=== PATIENT | male | born 1945 | race Native Hawaiian/Other Pacific Islander ===

== ENCOUNTER 2018-01-20 11:24 | Inpatient (IN) | payer MEDICARE, OTHER ==
[~2018-01-20] VITALS: Ht 373.4 cm; Wt 86.0 kg
[2018-01-20 11:52] LABS: BASOPHILS % (AUTO) 0.4 % (0-1); EOSINOPHILS # (AUTO) 0.1 X10'3 (0-0.9); EOSINOPHILS % (AUTO) 0.5 % (0-6); HEMATOCRIT 50.6 % (42.0-52.0); HEMOGLOBIN 16.8 g/dl (14.0-17.9); LYMPHOCYTES # (AUTO) 1.3 X10'3 (1.1-4.8); LYMPHOCYTES % (AUTO) 10.4 % (21-51); MEAN CORPUSCULAR HEMOGLOBIN 29.3 PG (27.0-31.0); MEAN CORPUSCULAR HGB CONC 33.2 % (33.0-36.5); MEAN CORPUSCULAR VOLUME 88.4 FL (78-98); MEAN PLATELET VOLUME 7.6 FL (7.4-10.4); MONOCYTES # (AUTO) 0.3 X10'3 (0-0.9); MONOCYTES % (AUTO) 2.7 % (2-12); NEUTROPHILS # (AUTO) 10.9 X10'3 (1.8-7.7); PLATELET COUNT 277 X10'3 (140-440); RED BLOOD COUNT 5.72 X10'6 (4.70-6.10); RED CELL DISTRIBUTION WIDTH 13.6 % (11.5-14.5); WHITE BLOOD COUNT 12.7 X10'3 (4.5-11.0)
[2018-01-20 12:04] LABS: INR 1.1 INR; PARTIAL THROMBOPLASTIN TIME 25 SECONDS (22-32)
[2018-01-20] MEDS ORDERED: heparin 25,000 UNIT/250ml bag 250 ML IV SCH (12:04)
[2018-01-20] MEDS ORDERED: heparin 10,000 units/1 ML INJ IV ONE (12:05)
[2018-01-20] MEDS ORDERED: heparin 10,000 units/1 ML INJ IV PRN (12:05)
[2018-01-20] MEDS ORDERED: aspirin 325mg tablet PO ONE (12:05)
[2018-01-20 12:06] LABS: ALANINE AMINOTRANSFERASE 33 U/L (12-78); ALBUMIN 4.1 G/DL (3.4-5.0); ALBUMIN/GLOBULIN RATIO 0.9 (1.1-1.5); ALKALINE PHOSPHATASE 59 IU/L (46-116); ANION GAP 12 (8-16); ASPARTATE AMINO TRANSFERASE 23 U/L (10-37); BILIRUBIN,TOTAL 0.7 MG/DL (0.1-1.0); BLOOD UREA NITROGEN 20 MG/DL (7-18); BUN/CREATININE RATIO 15.6 (5.4-32.0); CALCIUM 9.5 MG/DL (8.5-10.1); CHLORIDE 103 MMOL/L (99-107); CREATININE 1.28 MG/DL (0.60-1.10); GLUCOSE 154 MG/DL (70-104); POTASSIUM 4.1 MMOL/L (3.5-5.1); SODIUM 139 MMOL/L (135-145); TOTAL CARBON DIOXIDE 24.2 MMOL/L (24-32); TOTAL PROTEIN 8.6 G/DL (6.4-8.2); eGFR 56 ML/MIN
[2018-01-20 12:10] LABS: TROPONIN I < 0.04 NG/ML (0.0-0.05)
[2018-01-20] MEDS ORDERED: apixaban 2.5mg tablet PO SCH (12:21)
[2018-01-20] MEDS ORDERED: ondansetron/PF 4mg/2ml inj IV ONE ×2 (12:25→13:55)
[2018-01-20] MEDS: normal saline 1000ml 1,000 ML IV SCH (12:48)
[2018-01-20] MEDS ORDERED: magnesium 4gm in 100ml NS 100 ML IV PRN (12:50)
[2018-01-20] MEDS ORDERED: HYDROcodone/acetaminophen 5mg/325mg tablet PO PRN (12:50)
[2018-01-20] MEDS ORDERED: atorvastatin 10mg tablet PO SCH (12:50)
[2018-01-20] MEDS ORDERED: potassium Cl 20 mEq SR tablet PO PRN ×2 (12:50)
[2018-01-20] MEDS ORDERED: mag hydrox/Alum hydrox/simeth 30ml oral suspension PO PRN (12:50)
[2018-01-20] MEDS ORDERED: diphenhydrAMINE 25mg capsule PO PRN (12:50)
[2018-01-20] MEDS ORDERED: morphine 2 MG/ML inj. syringe IV PRN ×2 (12:50)
[2018-01-20] MEDS ORDERED: magnesium 1gm/100ml D5W IVPB 100 ML IV PRN (12:50)
[2018-01-20] MEDS ORDERED: acetaminophen 325mg tablet PO PRN ×2 (12:50)
[2018-01-20] MEDS ORDERED: HYDROcodone/acetaminophen 10/325mg tab PO PRN (12:50)
[2018-01-20] MEDS ORDERED: potassium Cl 40MEQ/NS 500ml 500 ML IV PRN ×2 (12:50)
[2018-01-20] MEDS ORDERED: magnesium hydroxide 30ml (MOM) UD suspension PO PRN (12:50)
[2018-01-20] MEDS ORDERED: magnesium Cl slow-release 64mg tablet PO PRN (12:50)
[2018-01-20 13:25] LABS: CHOL/HDL RATIO 6.9 (0.00-4.99); CHOLESTEROL 247 MG/DL (0-200); HDL CHOLESTEROL 36 MG/DL (35-60); LDL CHOLESTEROL 180 MG/DL (50-100); TRIGLYCERIDES 172 MG/DL (20-135)
[2018-01-20 13:28] LABS: HEMOGLOBIN A1C 6.5 % (4.5-6.2)
[2018-01-20] MEDS: K and/or MAG REPLACEMENT MC SCH (13:32)
[2018-01-20] MEDS ORDERED: LORazepam 2 mg/ml vial IV ONE (13:55)
[2018-01-20] MEDS ORDERED: NO HOME MEDS (14:34)
[2018-01-20] MEDS: carVEDilol 12.5mg tablet PO SCH ×2 (15:00→20:05)
[2018-01-20] MEDS: atorvastatin 20mg tablet PO SCH (15:05)
[2018-01-20 17:07] LABS: CLARITY,URINE SLIGHTLY CLOUDY (Clear); GLUCOSE, URINE NEGATIVE (Neg); KETONES,URINE 15 mg/dl (Neg); LEUKOCYTE ESTERASE ,URINE NEGATIVE (Neg); NITRITES, URINE NEGATIVE (Neg); OCCULT BLOOD,URINE SMALL (Neg); PROTEIN,URINE >=300 mg/dl (Neg); UROBILINOGEN,URINE 0.2 E.U/dL (0.2-1.0)
[2018-01-20 17:09] LABS: COLOR,URINE AMBER (Yellow); UA COLLECTION TYPE CLN CATCH MIDSTREAM
[2018-01-20 17:35] LABS: BACTERIA,URINE FEW /HPF (Neg); RBC,URINE NONE SEEN /HPF (0-2); SQUAMOUS EPITHELIAL CELL,UR NONE SEEN /LPF (FEW); WBC,URINE 0-4 /HPF (0-4)
[2018-01-20 17:56] VITALS: BP 151/88
[2018-01-20] MEDS: ondansetron/PF 4mg/2ml inj IV PRN (19:23)
[2018-01-20] MEDS: apixaban 5mg tablet PO SCH (20:06)
[2018-01-20] MEDS ORDERED: temazepam 15mg capsule PO PRN (21:00)
[2018-01-20 22:00] VITALS: BP 130/81
[2018-01-21] VITALS (7 sets, daily range): BP systolic 113–142; BP diastolic 50–87
[2018-01-21] MEDS: normal saline 1000ml 1,000 ML IV SCH ×3 (01:25→19:33)
[2018-01-21 07:47] LABS: BASOPHILS % (AUTO) 0.5 % (0-1); EOSINOPHILS # (AUTO) 0.1 X10'3 (0-0.9); EOSINOPHILS % (AUTO) 1.2 % (0-6); HEMATOCRIT 42.6 % (42.0-52.0); HEMOGLOBIN 14.2 g/dl (14.0-17.9); LYMPHOCYTES # (AUTO) 1.7 X10'3 (1.1-4.8); LYMPHOCYTES % (AUTO) 19.5 % (21-51); MEAN CORPUSCULAR HEMOGLOBIN 29.6 PG (27.0-31.0); MEAN CORPUSCULAR HGB CONC 33.4 % (33.0-36.5); MEAN CORPUSCULAR VOLUME 88.6 FL (78-98); MEAN PLATELET VOLUME 7.9 FL (7.4-10.4); MONOCYTES # (AUTO) 0.9 X10'3 (0-0.9); NEUTROPHILS # (AUTO) 5.9 X10'3 (1.8-7.7); NEUTROPHILS % (AUTO) 68.8 % (42-75); PLATELET COUNT 228 X10'3 (140-440); RED CELL DISTRIBUTION WIDTH 13.7 % (11.5-14.5); WHITE BLOOD COUNT 8.6 X10'3 (4.5-11.0)
[2018-01-21] MEDS: aspirin 81mg tablet.DR PO SCH (07:50)
[2018-01-21] MEDS: atorvastatin 20mg tablet PO SCH (07:50)
[2018-01-21] MEDS: carVEDilol 12.5mg tablet PO SCH ×2 (07:50→19:33)
[2018-01-21] MEDS: apixaban 5mg tablet PO SCH ×2 (07:50→19:33)
[2018-01-21] MEDS: K and/or MAG REPLACEMENT MC SCH (08:00)
[2018-01-21 08:05] LABS: ALANINE AMINOTRANSFERASE 25 U/L (12-78); ALBUMIN 3.1 G/DL (3.4-5.0); ALBUMIN/GLOBULIN RATIO 0.9 (1.1-1.5); ALKALINE PHOSPHATASE 45 IU/L (46-116); ASPARTATE AMINO TRANSFERASE 19 U/L (10-37); BILIRUBIN,TOTAL 0.5 MG/DL (0.1-1.0); BLOOD UREA NITROGEN 23 MG/DL (7-18); CALCIUM 8.6 MG/DL (8.5-10.1); CHOLESTEROL 181 MG/DL (0-200); CREATININE 1.21 MG/DL (0.60-1.10); GLUCOSE 124 MG/DL (70-104); HDL CHOLESTEROL 30 MG/DL (35-60); LDL CHOLESTEROL 133 MG/DL (50-100); TOTAL CARBON DIOXIDE 26.1 MMOL/L (24-32); TOTAL PROTEIN 6.7 G/DL (6.4-8.2); TRIGLYCERIDES 119 MG/DL (20-135); eGFR 59 ML/MIN
[2018-01-21 08:19] LABS: ANION GAP 10 (8-16); CHLORIDE 107 MMOL/L (99-107); POTASSIUM 3.9 MMOL/L (3.5-5.1); SODIUM 143 MMOL/L (135-145)
[2018-01-22] VITALS: BP 126/74
[2018-01-22 04:54] VITALS: BP 148/94
[2018-01-22 06:22] LABS: BASOPHILS % (AUTO) 0.6 % (0-1); EOSINOPHILS # (AUTO) 0.1 X10'3 (0-0.9); EOSINOPHILS % (AUTO) 1.8 % (0-6); HEMATOCRIT 40.2 % (42.0-52.0); HEMOGLOBIN 13.4 g/dl (14.0-17.9); MEAN CORPUSCULAR HEMOGLOBIN 29.6 PG (27.0-31.0); MEAN CORPUSCULAR HGB CONC 33.3 % (33.0-36.5); MEAN CORPUSCULAR VOLUME 88.9 FL (78-98); MEAN PLATELET VOLUME 8.1 FL (7.4-10.4); MONOCYTES # (AUTO) 0.6 X10'3 (0-0.9); MONOCYTES % (AUTO) 8.2 % (2-12); NEUTROPHILS % (AUTO) 64.4 % (42-75); PLATELET COUNT 215 X10'3 (140-440); RED BLOOD COUNT 4.52 X10'6 (4.70-6.10); WHITE BLOOD COUNT 7.8 X10'3 (4.5-11.0)
[2018-01-22 07:22] LABS: ALANINE AMINOTRANSFERASE 27 U/L (12-78); ALBUMIN 2.9 G/DL (3.4-5.0); ALBUMIN/GLOBULIN RATIO 0.8 (1.1-1.5); ALKALINE PHOSPHATASE 48 IU/L (46-116); ANION GAP 9 (8-16); ASPARTATE AMINO TRANSFERASE 21 U/L (10-37); BILIRUBIN,TOTAL 0.5 MG/DL (0.1-1.0); BLOOD UREA NITROGEN 21 MG/DL (7-18); BUN/CREATININE RATIO 17.2 (5.4-32.0); CALCIUM 7.7 MG/DL (8.5-10.1); CHLORIDE 106 MMOL/L (99-107); CREATININE 1.22 MG/DL (0.60-1.10); GLUCOSE 109 MG/DL (70-104); MAGNESIUM 1.7 MG/DL (1.5-2.4); PHOSPHORUS 2.8 MG/DL (2.3-4.5); POTASSIUM 3.8 MMOL/L (3.5-5.1); SODIUM 140 MMOL/L (135-145); TOTAL CARBON DIOXIDE 25.1 MMOL/L (24-32); TOTAL PROTEIN 6.4 G/DL (6.4-8.2); eGFR 59 ML/MIN
[2018-01-22] MEDS: K and/or MAG REPLACEMENT MC SCH (08:00)
[2018-01-22 08:54] VITALS: BP 129/73
[2018-01-22] MEDS: normal saline 1000ml 1,000 ML IV SCH ×2 (09:08→14:48)
[2018-01-22] MEDS: apixaban 5mg tablet PO SCH (09:20)
[2018-01-22] MEDS: carVEDilol 12.5mg tablet PO SCH (09:20)
[2018-01-22] MEDS: atorvastatin 20mg tablet PO SCH (09:20)
[2018-01-22] MEDS: aspirin 81mg tablet.DR PO SCH (09:20)
[2018-01-22] MEDS: ondansetron/PF 4mg/2ml inj IV PRN (09:21)
[2018-01-22] MEDS ORDERED: ATOR20TA66 PO (13:21)
[2018-01-22] MEDS ORDERED: CARV-50 PO (13:21)
[2018-01-22] MEDS ORDERED: APIX5TAB3 PO (13:21)
[2018-01-22] MEDS ORDERED: ASPI-1071 PO (13:21)
[2018-01-22] MEDS ORDERED: METF-950 PO (16:54)
[2018-01-22] MEDS ORDERED: PANT40TA4 PO (16:54)
== END 2018-01-22 16:09 | disposition home or self-care (01) | DRG 66 ==
LOC: ER 11:25 → ED HOLD 12:48 → ORTHO 4S 17:35
PROVIDERS: ADMIT Family Medicine; ATTEND Family Medicine
DX: I63.40 Cerebral infarction due to embolism of unspecified cerebral artery (principal); I48.91 Unspecified atrial fibrillation; E78.5 Hyperlipidemia, unspecified; Z60.2 Problems related to living alone; H53.8 Other visual disturbances; H53.462 Homonymous bilateral field defects, left side; I49.3 Ventricular premature depolarization; Z79.01 Long term (current) use of anticoagulants; Z79.82 Long term (current) use of aspirin; Z79.899 Other long term (current) drug therapy; Z80.1 Family history of malignant neoplasm of trachea, bronchus and lung; Z80.3 Family history of malignant neoplasm of breast
CPT/HCPCS: 36415; 70450; 70544; 70551; 71045; 80053; 80061; 81001; 82948; 83036; 83735; 84100; 84443; 84484; 85025; 85610; 85730; 87070; 92616; 93005; 93306; 93880; 96374; 97116; 97161; 99285; G0378; J2060; J2405; J7030

== ENCOUNTER 2018-05-06 14:42 | Inpatient (IN) | payer MEDICARE, OTHER | END 2018-05-07 18:05 | disposition home or self-care (01) | LOC: ER 14:42 → ED HOLD 18:02 → ORTHO 4S 20:20 | DX: R55 Syncope and collapse (principal); I48.91 Unspecified atrial fibrillation; G93.89 Other specified disorders of brain; Z86.73 Personal history of transient ischemic attack (TIA), and cerebral infarction without residual deficits; N18.9 Chronic kidney disease, unspecified ==

== ENCOUNTER 2018-07-23 09:53 | Outpatient (CLI) | payer MEDICARE, OTHER ==
[2018-07-23] VITALS (21 sets, daily range): BP systolic 138–186; BP diastolic 76–111
[~2018-07-23 09:53] MED LIST: APIX5TAB3 PO; ASPI-1071 PO; CARV-50 PO; LORA10TA65 PO
== END 2018-07-23 23:59 | disposition home or self-care (01) ==
LOC: CARD DIAG 09:53
PROVIDERS: ATTEND Internal Medicine Cardiovascular Disease
DX: R42 Dizziness and giddiness (principal); I10 Essential (primary) hypertension
CPT/HCPCS: 93660

== ENCOUNTER 2018-07-30 10:05 | Day surgery (SDC) | payer MEDICARE, OTHER ==
[2018-07-30] VITALS (11 sets, daily range): BP systolic 147–178; BP diastolic 66–94
[~2018-07-30] VITALS: Ht 190.5 cm; Wt 104.9 kg
[2018-07-30] MEDS ORDERED: MIDAZolam 5mg/ml 2ml vial IV ONE (10:40)
[2018-07-30] MEDS ORDERED: morphine 10mg/ml inj. IV ONE (10:40)
[2018-07-30] MEDS ORDERED: amiodarone in dextrose, iso-osm 150mg/100ml bag IV ONE (10:40)
[2018-07-30] MEDS ORDERED: LORazepam 0.5 MG tablet PO ONE (10:40)
[2018-07-30] MEDS ORDERED: atropine 0.1mg/ml 10ml syringe IV ONE (10:40)
[2018-07-30] MEDS ORDERED: diphenhydrAMINE 25mg capsule PO ONE (10:40)
[2018-07-30] MEDS ORDERED: ATOR20TA PO (11:00)
[2018-07-30] MEDS ORDERED: LORA10TA7 PO (11:04)
[2018-07-30] MEDS ORDERED: APIX5TAB3 PO (11:04)
[2018-07-30] MEDS ORDERED: CARV-50 PO (11:04)
[2018-07-30] MEDS ORDERED: ASPI81TA30 PO (11:04)
[2018-07-30 12:26] LABS: BASOPHILS # (AUTO) 0.1 X10'3 (0-0.2); BASOPHILS % (AUTO) 1.1 % (0-1); EOSINOPHILS # (AUTO) 0.2 X10'3 (0-0.9); EOSINOPHILS % (AUTO) 2.7 % (0-6); HEMATOCRIT 43.3 % (42.0-52.0); HEMOGLOBIN 14.8 g/dl (14.0-17.9); LYMPHOCYTES # (AUTO) 1.4 X10'3 (1.1-4.8); LYMPHOCYTES % (AUTO) 19.4 % (21-51); MEAN CORPUSCULAR HEMOGLOBIN 31.2 PG (27.0-31.0); MEAN CORPUSCULAR HGB CONC 34.2 g/dL (33.0-36.5); MEAN CORPUSCULAR VOLUME 91.2 FL (78-98); MEAN PLATELET VOLUME 7.9 FL (7.4-10.4); MONOCYTES # (AUTO) 0.5 X10'3 (0-0.9); MONOCYTES % (AUTO) 7.5 % (2-12); NEUTROPHILS # (AUTO) 4.8 X10'3 (1.8-7.7); NEUTROPHILS % (AUTO) 69.3 % (42-75); PLATELET COUNT 173 X10'3 (140-440); RED BLOOD COUNT 4.75 X10'6 (4.70-6.10); RED CELL DISTRIBUTION WIDTH 13.6 % (11.5-14.5)
[2018-07-30] MEDS ORDERED: AMIO200T27 PO (12:27)
[2018-07-30 12:41] LABS: ALBUMIN 3.7 G/DL (3.4-5.0); ANION GAP 7 (8-16); BLOOD UREA NITROGEN 19 MG/DL (7-18); BUN/CREATININE RATIO 17.9 (5.4-32.0); CALCIUM 8.8 MG/DL (8.5-10.1); CHLORIDE 106 MMOL/L (99-107); CREATININE 1.06 MG/DL (0.60-1.10); GLUCOSE 107 MG/DL (70-104); POTASSIUM 4.2 MMOL/L (3.5-5.1); SODIUM 140 MMOL/L (135-145); TOTAL CARBON DIOXIDE 26.8 MMOL/L (24-32); eGFR 69 ML/MIN
== END 2018-07-30 15:45 | disposition home or self-care (01) ==
LOC: SSTAY O 10:05
PROVIDERS: ATTEND Internal Medicine Cardiovascular Disease
DX: I48.0 Paroxysmal atrial fibrillation (principal); E78.5 Hyperlipidemia, unspecified; I10 Essential (primary) hypertension; G47.30 Sleep apnea, unspecified; I34.0 Nonrheumatic mitral (valve) insufficiency; Z79.82 Long term (current) use of aspirin; Z79.899 Other long term (current) drug therapy; Z80.8 Family history of malignant neoplasm of other organs or systems; Z86.73 Personal history of transient ischemic attack (TIA), and cerebral infarction without residual deficits
CPT/HCPCS: 36415; 80048; 85025; 85610; 92960; 93005; J0282; J0461; J2250; J2270

== ENCOUNTER 2018-08-03 09:04 | Inpatient (IN) | payer MEDICARE, OTHER ==
[~2018-08-03] VITALS: Ht 190.5 cm; Wt 104.5 kg
[~2018-08-03 09:04] MED LIST changes: +AMIO200T27 PO; -ASPI-1071 PO; +ASPI81TA30 PO; +ATOR20TA PO; -LORA10TA65 PO; +LORA10TA7 PO
[2018-08-03] MEDS ORDERED: ondansetron/PF 4mg/2ml inj IV ONE (09:30)
[2018-08-03 09:48] LABS: BASOPHILS # (AUTO) 0.1 X10'3 (0-0.2); BASOPHILS % (AUTO) 0.8 % (0-1); EOSINOPHILS # (AUTO) 0.3 X10'3 (0-0.9); EOSINOPHILS % (AUTO) 2.7 % (0-6); HEMATOCRIT 42.1 % (42.0-52.0); LYMPHOCYTES # (AUTO) 1.2 X10'3 (1.1-4.8); LYMPHOCYTES % (AUTO) 12.6 % (21-51); MEAN CORPUSCULAR HEMOGLOBIN 30.6 PG (27.0-31.0); MEAN CORPUSCULAR HGB CONC 33.4 g/dL (33.0-36.5); MEAN CORPUSCULAR VOLUME 91.7 FL (78-98); MONOCYTES # (AUTO) 0.6 X10'3 (0-0.9); NEUTROPHILS # (AUTO) 7.7 X10'3 (1.8-7.7); NEUTROPHILS % (AUTO) 77.9 % (42-75); PLATELET COUNT 175 X10'3 (140-440); RED BLOOD COUNT 4.59 X10'6 (4.70-6.10); RED CELL DISTRIBUTION WIDTH 13.4 % (11.5-14.5); WHITE BLOOD COUNT 9.9 X10'3 (4.5-11.0)
[2018-08-03 10:01] LABS: ALANINE AMINOTRANSFERASE 27 U/L (12-78); ALBUMIN 3.6 G/DL (3.4-5.0); ALBUMIN/GLOBULIN RATIO 0.9 (1.1-1.5); ALKALINE PHOSPHATASE 60 IU/L (46-116); ANION GAP 9 (8-16); ASPARTATE AMINO TRANSFERASE 15 U/L (10-37); BILIRUBIN,TOTAL 0.8 MG/DL (0.1-1.0); BLOOD UREA NITROGEN 20 MG/DL (7-18); BUN/CREATININE RATIO 16.5 (5.4-32.0); CALCIUM 8.6 MG/DL (8.5-10.1); CHLORIDE 104 MMOL/L (99-107); CREATININE 1.21 MG/DL (0.60-1.10); GLUCOSE 163 MG/DL (70-104); POTASSIUM 4.3 MMOL/L (3.5-5.1); SODIUM 138 MMOL/L (135-145); TOTAL CARBON DIOXIDE 24.9 MMOL/L (24-32); TOTAL PROTEIN 7.4 G/DL (6.4-8.2); eGFR 59 ML/MIN
[2018-08-03 10:07] LABS: MAGNESIUM 1.8 MG/DL (1.5-2.4)
[2018-08-03] MEDS ORDERED: proCHLORperazine 10 MG/2 ml inj IV ONE (10:10)
[2018-08-03] MEDS ORDERED: HYDROcodone/acetaminophen 10/325mg tab PO PRN (11:00)
[2018-08-03] MEDS ORDERED: potassium CL 10mEq/100ml bag 100 ML IV PRN (11:00)
[2018-08-03] MEDS ORDERED: acetaminophen 325mg tablet PO PRN ×2 (11:00)
[2018-08-03] MEDS ORDERED: diphenhydrAMINE 25mg capsule PO PRN (11:00)
[2018-08-03] MEDS ORDERED: ondansetron/PF 4mg/2ml inj IV PRN (11:00)
[2018-08-03] MEDS ORDERED: magnesium Cl slow-release 64mg tablet PO PRN (11:00)
[2018-08-03] MEDS ORDERED: magnesium 2GM in 50ml NS 50 ML IV PRN (11:00)
[2018-08-03] MEDS ORDERED: HYDROcodone/acetaminophen 5mg/325mg tablet PO PRN (11:00)
[2018-08-03] MEDS ORDERED: mag hydrox/Alum hydrox/simeth 30ml oral suspension PO PRN (11:00)
[2018-08-03] MEDS ORDERED: potassium Cl 40MEQ/NS 500ml 500 ML IV PRN (11:00)
[2018-08-03] MEDS ORDERED: magnesium hydroxide 30ml (MOM) UD suspension PO PRN (11:00)
[2018-08-03] MEDS ORDERED: potassium Cl 20 mEq SR tablet PO PRN ×2 (11:00)
[2018-08-03] MEDS ORDERED: magnesium 4gm in 100ml NS 100 ML IV PRN (11:00)
[2018-08-03] MEDS ORDERED: bisacodyl 10mg suppository rectal RC PRN (11:00)
[2018-08-03] MEDS ORDERED: morphine 2 MG/ML inj. syringe IV PRN (11:00)
[2018-08-03] MEDS: K and/or MAG REPLACEMENT MC SCH (11:00)
[2018-08-03 11:21] LABS: HEMOGLOBIN A1C 6.1 % (4.5-6.2)
--- NOTE | 2018-08-03 11:21 | NUR ---
I SPOKE WITH DR FARLEY IN E.D. PATIENT WILL BE ADMITTED TO HOSPITALIST SERVICE. WILL FOLLOW ON FLOOR.
[2018-08-03] MEDS: normal saline 1000ml 1,000 ML IV SCH ×2 (11:31→13:39)
[2018-08-03 11:35] LABS: CLARITY,URINE CLEAR (Clear); COLOR,URINE STRAW (Yellow); GLUCOSE, URINE NEGATIVE (Neg); KETONES,URINE NEGATIVE (Neg); LEUKOCYTE ESTERASE ,URINE NEGATIVE (Neg); NITRITES, URINE NEGATIVE (Neg); OCCULT BLOOD,URINE NEGATIVE (Neg); PH,URINE 6.5 (4.8-8.0); PROTEIN,URINE NEGATIVE (Neg); UROBILINOGEN,URINE 0.2 E.U/dL (0.2-1.0)
[2018-08-03 11:36] LABS: UA COLLECTION TYPE VOIDED
--- NOTE | 2018-08-03 12:01 | NUR ---
REPORT TO TEENA RODRIGUES ON PCU. TAKEN TO INPATIENT ROOM VIA GURNEY ON PORTABLE MONITOR, IN STABLE CONDITION.
--- NOTE | 2018-08-03 12:07 | NUR ---
Pt arrived on unit 1205, received report at 1204 from Nevaeh DICKINSON. Patient was transferred to bed and is currently having an echo performed. Will initiate telemetry, obtain vital signs and orient the patient to the room as soon as echo is done.
[2018-08-03 13:00] VITALS: BP 158/76
--- NOTE | 2018-08-03 14:30 | NUR ---
PAGER ID: [phone] MESSAGE: [id number], Ng. Patient is nauseated at this time. MRI would like to postpone until 1630 or 1700 so avoid vomit in the MRI tube. Please advise, Ailyn [phone]
[2018-08-03] MEDS ORDERED: meclizine 12.5mg tablet PO ONE (14:40)
[2018-08-03] MEDS ORDERED: proCHLORperazine 10 MG/2 ml inj IV PRN (14:40)
[2018-08-03] MEDS ORDERED: metoclopramide 5 mg/ml inj IV PRN (14:40)
[2018-08-03] MEDS ORDERED: meclizine 12.5mg tablet PO PRN (14:40)
[2018-08-03 15:00] VITALS: BP 156/74
--- NOTE | 2018-08-03 17:15 | NUR ---
PAGER ID: [phone] MESSAGE: [id number], Ng. Can we postpone the MRI until tomorrow morning? Patient still slightly nauseated. Ailyn [phone]
--- NOTE | 2018-08-03 17:57 | NUR ---
Patient is having nausea and does not feel comfortable with going down for an MRI at this time. Paged Dr. Abad to ask if we can postpone the MRI for the morning after speaking with the central office technician and conferring that we do not want the patient to vomit in the MRI tube. Patient has received 2 different medications for nausea and is still feeling sick at this time. Patient would also like to have something to help with his claustrophobia before having the MRI done as well. Patient has also not been able to stand up for orthostatic vitals due to Nausea.
--- NOTE | 2018-08-03 18:17 | NUR ---
Problems reprioritized. Patient report given, questions answered & plan of care reviewed with Redd DICKINSON. Patient stable at transfer of care.
--- NOTE | 2018-08-03 18:37 | NUR ---
Patient in room PCU 3014. I have received report from Ailyn and had the opportunity to ask questions and assume patient care.
[2018-08-03 19:00] VITALS: BP 155/68
[2018-08-03] MEDS ORDERED: carVEDilol 3.125mg tablet PO SCH (20:00)
[2018-08-03] MEDS: apixaban 5mg tablet PO SCH (20:42)
[2018-08-03 23:00] VITALS: BP 159/66
[2018-08-04] VITALS (8 sets, daily range): BP systolic 123–173; BP diastolic 60–83
[2018-08-04] MEDS: normal saline 1000ml 1,000 ML IV SCH (04:02)
[2018-08-04 05:17] LABS: BASOPHILS # (AUTO) 0.1 X10'3 (0-0.2); BASOPHILS % (AUTO) 0.7 % (0-1); EOSINOPHILS # (AUTO) 0.1 X10'3 (0-0.9); EOSINOPHILS % (AUTO) 1.2 % (0-6); HEMATOCRIT 40.2 % (42.0-52.0); HEMOGLOBIN 13.7 g/dl (14.0-17.9); LYMPHOCYTES # (AUTO) 1.4 X10'3 (1.1-4.8); LYMPHOCYTES % (AUTO) 18.6 % (21-51); MEAN CORPUSCULAR HEMOGLOBIN 30.9 PG (27.0-31.0); MEAN CORPUSCULAR VOLUME 90.9 FL (78-98); MEAN PLATELET VOLUME 8.2 FL (7.4-10.4); MONOCYTES # (AUTO) 0.6 X10'3 (0-0.9); MONOCYTES % (AUTO) 8.3 % (2-12); NEUTROPHILS # (AUTO) 5.5 X10'3 (1.8-7.7); NEUTROPHILS % (AUTO) 71.2 % (42-75); PLATELET COUNT 162 X10'3 (140-440); RED BLOOD COUNT 4.43 X10'6 (4.70-6.10); RED CELL DISTRIBUTION WIDTH 13.3 % (11.5-14.5); WHITE BLOOD COUNT 7.7 X10'3 (4.5-11.0)
[2018-08-04 05:32] LABS: ALANINE AMINOTRANSFERASE 26 U/L (12-78); ALBUMIN 3.1 G/DL (3.4-5.0); ALBUMIN/GLOBULIN RATIO 0.9 (1.1-1.5); ALKALINE PHOSPHATASE 53 IU/L (46-116); ANION GAP 9 (8-16); ASPARTATE AMINO TRANSFERASE 15 U/L (10-37); BILIRUBIN,TOTAL 0.8 MG/DL (0.1-1.0); BLOOD UREA NITROGEN 13 MG/DL (7-18); BUN/CREATININE RATIO 11.5 (5.4-32.0); CALCIUM 8.4 MG/DL (8.5-10.1); CHLORIDE 107 MMOL/L (99-107); CHOL/HDL RATIO 4.6 (0.00-4.99); CHOLESTEROL 132 MG/DL (0-200); CREATININE 1.13 MG/DL (0.60-1.10); GLUCOSE 89 MG/DL (70-104); HDL CHOLESTEROL 29 MG/DL (35-60); LDL CHOLESTEROL 87 MG/DL (50-100); MAGNESIUM 1.8 MG/DL (1.5-2.4); PHOSPHORUS 3.1 MG/DL (2.3-4.5); POTASSIUM 3.7 MMOL/L (3.5-5.1); SODIUM 141 MMOL/L (135-145); TOTAL CARBON DIOXIDE 25.1 MMOL/L (24-32); TOTAL PROTEIN 6.5 G/DL (6.4-8.2); TRIGLYCERIDES 107 MG/DL (20-135); eGFR 64 ML/MIN
--- NOTE | 2018-08-04 06:26 | NUR ---
Problems reprioritized. Patient report given, questions answered & plan of care reviewed with Mary.
--- NOTE | 2018-08-04 06:34 | NUR ---
Patient in room PCU 3014. I have received report from Keri DICKINSON and had the opportunity to ask questions and assume patient care.
[2018-08-04] MEDS: loratadine 10mg tablet PO SCH (07:50)
[2018-08-04] MEDS: aspirin 81mg tab.chew PO SCH (07:50)
[2018-08-04] MEDS: apixaban 5mg tablet PO SCH ×2 (07:50→20:44)
[2018-08-04] MEDS: amiodarone 200mg tablet PO SCH (07:50)
[2018-08-04] MEDS ORDERED: atorvastatin 20mg tablet PO SCH (08:00)
[2018-08-04] MEDS: K and/or MAG REPLACEMENT MC SCH (08:00)
[2018-08-04] MEDS ORDERED: LORazepam 2 mg/ml vial IV ONE (09:00)
--- NOTE | 2018-08-04 10:48 | NUR ---
paged stroke team [id number] Pt Ng Stroke alert MRI new infarct Left cerebellum Thank you Ext [phone]
--- NOTE | 2018-08-04 11:05 | NUR ---
Per Dr. Abad, follow stroke protocol but do not order CT.
[2018-08-04 12:03] LABS: BASOPHILS % (AUTO) 0.7 % (0-1); EOSINOPHILS # (AUTO) 0.1 X10'3 (0-0.9); EOSINOPHILS % (AUTO) 0.7 % (0-6); HEMATOCRIT 41.4 % (42.0-52.0); HEMOGLOBIN 13.8 g/dl (14.0-17.9); LYMPHOCYTES # (AUTO) 1.2 X10'3 (1.1-4.8); LYMPHOCYTES % (AUTO) 15.9 % (21-51); MEAN CORPUSCULAR HEMOGLOBIN 30.3 PG (27.0-31.0); MEAN CORPUSCULAR HGB CONC 33.2 g/dL (33.0-36.5); MEAN CORPUSCULAR VOLUME 91.2 FL (78-98); MEAN PLATELET VOLUME 8.1 FL (7.4-10.4); MONOCYTES # (AUTO) 0.5 X10'3 (0-0.9); MONOCYTES % (AUTO) 7.3 % (2-12); NEUTROPHILS # (AUTO) 5.5 X10'3 (1.8-7.7); NEUTROPHILS % (AUTO) 75.4 % (42-75); PLATELET COUNT 173 X10'3 (140-440); RED BLOOD COUNT 4.55 X10'6 (4.70-6.10); RED CELL DISTRIBUTION WIDTH 13.7 % (11.5-14.5); WHITE BLOOD COUNT 7.3 X10'3 (4.5-11.0)
[2018-08-04 12:18] LABS: ALANINE AMINOTRANSFERASE 22 U/L (12-78); ALBUMIN 3.2 G/DL (3.4-5.0); ALBUMIN/GLOBULIN RATIO 0.9 (1.1-1.5); ALKALINE PHOSPHATASE 56 IU/L (46-116); ANION GAP 9 (8-16); ASPARTATE AMINO TRANSFERASE 15 U/L (10-37); BILIRUBIN,TOTAL 0.6 MG/DL (0.1-1.0); BLOOD UREA NITROGEN 16 MG/DL (7-18); BUN/CREATININE RATIO 13.9 (5.4-32.0); CALCIUM 8.5 MG/DL (8.5-10.1); CHLORIDE 106 MMOL/L (99-107); CREATININE 1.15 MG/DL (0.60-1.10); GLUCOSE 126 MG/DL (70-104); POTASSIUM 3.9 MMOL/L (3.5-5.1); SODIUM 140 MMOL/L (135-145); TOTAL CARBON DIOXIDE 24.6 MMOL/L (24-32); TOTAL PROTEIN 6.8 G/DL (6.4-8.2); eGFR 63 ML/MIN
[2018-08-04 12:20] LABS: PARTIAL THROMBOPLASTIN TIME 30 SECONDS (22-32)
--- NOTE | 2018-08-04 13:55 | NUR ---
I came and saw patient regarding new cva on mri report, the nihss and stroke education was completed. Pt has now seen the patient and will be working with him regarding safety concerns with his balance. I will pass on to the nurse that patient will probably need to have his Lipitor increased since the LDL is still elevated after being on 20mg dose. Also I am trying to see if is vocational director for in patient to make any recommendations for medication changes. If he is not available then I will have nurse ask Dr. Abad if he wants SOC to evaluate.
--- NOTE | 2018-08-04 14:09 | NUR ---
Dr. Garcia is targeting acquisition officer per his office this week so I will inform the pt's nurse to have Dr. Abad call him today if he wants the patient to be seen by Dr. Garcia.
--- NOTE | 2018-08-04 14:28 | NUR ---
PAGER ID: [phone] MESSAGE: [id number] pt Ng per stroke nurse SOC is not done when MD is call or contact centre operator. If you want Dr. Hicks to consult it must be MD to MD request. Please and thank you. - Amy [phone]
--- NOTE | 2018-08-04 14:31 | NUR ---
PAGER ID: [phone] MESSAGE: [phone] pt Ng per stroke nurse SOC is not done when MD is overnight houseperson. If you want Dr. Hicks to consult it must be MD to MD request. Please and thank you. - Amy [phone]
--- NOTE | 2018-08-04 14:51 | NUR ---
I forgot to document that the left visual field deficit is from an old stroke and not new.
--- NOTE | 2018-08-04 18:15 | NUR ---
Problems reprioritized. Patient report given, questions answered & plan of care reviewed with Keri DICKINSON.
--- NOTE | 2018-08-04 18:49 | NUR ---
Patient in room PCU 3014. I have received report from Mary and had the opportunity to ask questions and assume patient care.
--- NOTE | 2018-08-04 18:54 | NUR ---
Patient in room PCU 3014. I have received report from Mary DICKINSON and had the opportunity to ask questions and assume patient care.
[2018-08-04] MEDS: atorvastatin 20mg tablet PO SCH (19:01)
--- NOTE | 2018-08-04 19:33 | NUR ---
patient converted to afib about 15 minutes ago from sinus. patient is asymptomatic. BP 155/74 HR [address] Suárez. He's aware and made no changes to current plan.
[2018-08-05] VITALS (7 sets, daily range): BP systolic 122–158; BP diastolic 71–99
[2018-08-05 05:16] LABS: BASOPHILS # (AUTO) 0.1 X10'3 (0-0.2); EOSINOPHILS # (AUTO) 0.2 X10'3 (0-0.9); EOSINOPHILS % (AUTO) 2.2 % (0-6); HEMATOCRIT 45.3 % (42.0-52.0); HEMOGLOBIN 15.4 g/dl (14.0-17.9); LYMPHOCYTES # (AUTO) 1.8 X10'3 (1.1-4.8); LYMPHOCYTES % (AUTO) 24.8 % (21-51); MEAN CORPUSCULAR HGB CONC 34.1 g/dL (33.0-36.5); MEAN CORPUSCULAR VOLUME 90.9 FL (78-98); MONOCYTES # (AUTO) 0.7 X10'3 (0-0.9); MONOCYTES % (AUTO) 9.1 % (2-12); NEUTROPHILS # (AUTO) 4.5 X10'3 (1.8-7.7); NEUTROPHILS % (AUTO) 62.9 % (42-75); PLATELET COUNT 185 X10'3 (140-440); RED BLOOD COUNT 4.98 X10'6 (4.70-6.10); RED CELL DISTRIBUTION WIDTH 13.6 % (11.5-14.5); WHITE BLOOD COUNT 7.2 X10'3 (4.5-11.0)
[2018-08-05 05:43] LABS: ALANINE AMINOTRANSFERASE 22 U/L (12-78); ALBUMIN 3.5 G/DL (3.4-5.0); ALBUMIN/GLOBULIN RATIO 0.9 (1.1-1.5); ALKALINE PHOSPHATASE 62 IU/L (46-116); ANION GAP 10 (8-16); ASPARTATE AMINO TRANSFERASE 15 U/L (10-37); BILIRUBIN,TOTAL 0.8 MG/DL (0.1-1.0); BLOOD UREA NITROGEN 16 MG/DL (7-18); BUN/CREATININE RATIO 12.5 (5.4-32.0); CHLORIDE 105 MMOL/L (99-107); CREATININE 1.28 MG/DL (0.60-1.10); GLUCOSE 108 MG/DL (70-104); PHOSPHORUS 3.3 MG/DL (2.3-4.5); POTASSIUM 3.6 MMOL/L (3.5-5.1); SODIUM 141 MMOL/L (135-145); TOTAL CARBON DIOXIDE 25.8 MMOL/L (24-32); TOTAL PROTEIN 7.3 G/DL (6.4-8.2); eGFR 55 ML/MIN
--- NOTE | 2018-08-05 06:00 | NUR ---
Received report from TEENA Rainey. Pt is A&O x4; denies nausea, vomiting, chest pain, SOB, and pain. LBM: 08/05. Respiratory: room air. Pt is in fall precautions due to admitting dx of dizziness. Fall precautions in place. Low bed, call light and personal items within reach, non-skid socks, and commode by bed. However, pt is not using commode. Call before using the bathroom. Will continue to monitor.
--- NOTE | 2018-08-05 06:17 | NUR ---
Problems reprioritized. Patient report given, questions answered & plan of care reviewed with Ailyn.
--- NOTE | 2018-08-05 06:18 | NUR ---
Problems reprioritized. Patient report given, questions answered & plan of care reviewed with Ailyn DICKINSON.
--- NOTE | 2018-08-05 06:19 | NUR ---
Discussed patient's change to afib and some flutter waves with larissa.
--- NOTE | 2018-08-05 06:19 | NUR ---
I have reviewed and agree with all medications administered and interventions performed by EXPANSION JOINT FINISHER froilan Martinez
[2018-08-05] MEDS: K and/or MAG REPLACEMENT MC SCH (06:43)
[2018-08-05] MEDS: atorvastatin 20mg tablet PO SCH (07:29)
[2018-08-05] MEDS: aspirin 81mg tab.chew PO SCH (07:31)
[2018-08-05] MEDS: loratadine 10mg tablet PO SCH (07:32)
[2018-08-05] MEDS: amiodarone 200mg tablet PO SCH (07:33)
[2018-08-05] MEDS: apixaban 5mg tablet PO SCH ×2 (07:33→19:42)
--- NOTE | 2018-08-05 12:05 | NUR ---
Paged respiratory regarding Cpap for sleep order.
--- NOTE | 2018-08-05 18:15 | NUR ---
Problems reprioritized. Patient report given, questions answered & plan of care reviewed with Redd DICKINSON. Patient stable at transfer of care.
--- NOTE | 2018-08-05 18:24 | NUR ---
Patient in room PCU 3014. I have received report from Ailyn and had the opportunity to ask questions and assume patient care.
[2018-08-06 02:00] VITALS: BP 158/83
--- NOTE | 2018-08-06 06:00 | NUR ---
Patient in room PCU 3014. I have received report from TEENA Saavedra and had the opportunity to ask questions and assume patient care. Pt resting, denies complaint.
[2018-08-06 06:01] LABS: BASOPHILS # (AUTO) 0.1 X10'3 (0-0.2); EOSINOPHILS # (AUTO) 0.2 X10'3 (0-0.9); EOSINOPHILS % (AUTO) 2.7 % (0-6); HEMATOCRIT 47.9 % (42.0-52.0); LYMPHOCYTES # (AUTO) 1.7 X10'3 (1.1-4.8); LYMPHOCYTES % (AUTO) 22.9 % (21-51); MEAN CORPUSCULAR HEMOGLOBIN 30.3 PG (27.0-31.0); MEAN CORPUSCULAR HGB CONC 33.4 g/dL (33.0-36.5); MEAN CORPUSCULAR VOLUME 90.9 FL (78-98); MEAN PLATELET VOLUME 7.9 FL (7.4-10.4); MONOCYTES # (AUTO) 0.7 X10'3 (0-0.9); MONOCYTES % (AUTO) 9.4 % (2-12); NEUTROPHILS # (AUTO) 4.7 X10'3 (1.8-7.7); PLATELET COUNT 194 X10'3 (140-440); RED BLOOD COUNT 5.26 X10'6 (4.70-6.10); RED CELL DISTRIBUTION WIDTH 13.1 % (11.5-14.5); WHITE BLOOD COUNT 7.3 X10'3 (4.5-11.0)
--- NOTE | 2018-08-06 06:13 | NUR ---
Problems reprioritized. Patient report given, questions answered & plan of care reviewed with Gordon.
[2018-08-06 06:16] LABS: ALANINE AMINOTRANSFERASE 26 U/L (12-78); ALBUMIN 3.3 G/DL (3.4-5.0); ALBUMIN/GLOBULIN RATIO 0.9 (1.1-1.5); ALKALINE PHOSPHATASE 59 IU/L (46-116); ANION GAP 8 (8-16); ASPARTATE AMINO TRANSFERASE 20 U/L (10-37); BILIRUBIN,TOTAL 0.7 MG/DL (0.1-1.0); BLOOD UREA NITROGEN 22 MG/DL (7-18); BUN/CREATININE RATIO 17.5 (5.4-32.0); CALCIUM 8.6 MG/DL (8.5-10.1); CHLORIDE 106 MMOL/L (99-107); CREATININE 1.26 MG/DL (0.60-1.10); GLUCOSE 114 MG/DL (70-104); PHOSPHORUS 3.8 MG/DL (2.3-4.5); POTASSIUM 3.6 MMOL/L (3.5-5.1); SODIUM 140 MMOL/L (135-145); TOTAL CARBON DIOXIDE 26.5 MMOL/L (24-32); TOTAL PROTEIN 7.1 G/DL (6.4-8.2); eGFR 56 ML/MIN
[2018-08-06 06:44] VITALS: BP 139/62
[2018-08-06] MEDS: atorvastatin 20mg tablet PO SCH (07:25)
[2018-08-06] MEDS: amiodarone 200mg tablet PO SCH (07:25)
[2018-08-06] MEDS: loratadine 10mg tablet PO SCH (07:25)
[2018-08-06] MEDS: apixaban 5mg tablet PO SCH (07:25)
[2018-08-06] MEDS: aspirin 81mg tab.chew PO SCH (07:26)
[2018-08-06] MEDS: K and/or MAG REPLACEMENT MC SCH (08:00)
[2018-08-06 11:00] VITALS: BP_SYST 126; BP_SYST 131; BP_SYST 141; BP_SYST 149; BP_DIAS 58; BP_DIAS 75; BP_DIAS 81; BP_DIAS 91
--- NOTE | 2018-08-06 12:30 | NUR ---
Called [facility] to give report as patient is to be transported at 1330. Report given to Yi with [facility].
--- NOTE | 2018-08-06 13:30 | NUR ---
Patient discharge in stable condition, VSS normal, A&Ox4, removed IV with catheter intact, tele removed, personal belongings and CPAP with patient. Pt off unit with wheelchair Addendum: 08/06/18 at 1339 by Jaspal Hart RN Pt off unit via wheelchair to [facility] via [employer]. Care relinquish.
--- NOTE | 2018-08-06 13:30 | NUR ---
Orientee documentation: I have reviewed and agree with interventions, assessments performed and documented by TEENA Shay.
== END 2018-08-06 13:26 | DRG 65 ==
LOC: ER 09:06 → PCU 3S 12:08 → CMPBEDREQ 19:46
PROVIDERS: ADMIT Family Medicine; ATTEND Family Medicine
DX: I63.9 Cerebral infarction, unspecified (principal); N17.9 Acute kidney failure, unspecified; H81.10 Benign paroxysmal vertigo, unspecified ear; I48.91 Unspecified atrial fibrillation; G47.33 Obstructive sleep apnea (adult) (pediatric); I12.9 Hypertensive chronic kidney disease with stage 1 through stage 4 chronic kidney disease, or unspecified chronic kidney disease; N18.2 Chronic kidney disease, stage 2 (mild); Z60.2 Problems related to living alone; E78.5 Hyperlipidemia, unspecified; G93.89 Other specified disorders of brain; R27.0 Ataxia, unspecified; I25.10 Atherosclerotic heart disease of native coronary artery without angina pectoris; Z79.01 Long term (current) use of anticoagulants; Z79.82 Long term (current) use of aspirin; Z79.899 Other long term (current) drug therapy; Z80.1 Family history of malignant neoplasm of trachea, bronchus and lung; Z80.3 Family history of malignant neoplasm of breast; Z86.73 Personal history of transient ischemic attack (TIA), and cerebral infarction without residual deficits
CPT/HCPCS: 36415; 70450; 70544; 70547; 70551; 71045; 72141; 80053; 80061; 81003; 83036; 83735; 83880; 84100; 84439; 84443; 84484; 85025; 85730; 87070; 93005; 93306; 93880; 96374; 96375; 97110; 97116; 97162; 97530; 99285; G0378; J0780; J2060; J2405; J7030; J8597

== ENCOUNTER 2018-10-28 06:50 | Day surgery (SDC) | payer MEDICARE, OTHER ==
[2018-10-27 15:31] LABS: BASOPHILS # (AUTO) 0.1 X10'3 (0-0.2); BASOPHILS % (AUTO) 0.9 % (0-1); EOSINOPHILS # (AUTO) 0.1 X10'3 (0-0.9); EOSINOPHILS % (AUTO) 1.9 % (0-6); HEMATOCRIT 43.6 % (42.0-52.0); HEMOGLOBIN 14.7 g/dl (14.0-17.9); LYMPHOCYTES # (AUTO) 1.5 X10'3 (1.1-4.8); LYMPHOCYTES % (AUTO) 25.2 % (21-51); MEAN CORPUSCULAR HEMOGLOBIN 31.4 PG (27.0-31.0); MEAN CORPUSCULAR HGB CONC 33.8 g/dL (33.0-36.5); MEAN PLATELET VOLUME 7.9 FL (7.4-10.4); MONOCYTES # (AUTO) 0.5 X10'3 (0-0.9); MONOCYTES % (AUTO) 7.8 % (2-12); NEUTROPHILS # (AUTO) 3.7 X10'3 (1.8-7.7); NEUTROPHILS % (AUTO) 64.2 % (42-75); PLATELET COUNT 187 X10'3 (140-440); RED BLOOD COUNT 4.69 X10'6 (4.70-6.10); RED CELL DISTRIBUTION WIDTH 14.9 % (11.5-14.5); WHITE BLOOD COUNT 5.8 X10'3 (4.5-11.0)
[2018-10-27 15:35] LABS: ALBUMIN 3.8 G/DL (3.4-5.0); ANION GAP 9 (8-16); BLOOD UREA NITROGEN 23 MG/DL (7-18); BUN/CREATININE RATIO 16.2 (5.4-32.0); CALCIUM 9.5 MG/DL (8.5-10.1); CHLORIDE 108 MMOL/L (99-107); CREATININE 1.42 MG/DL (0.60-1.10); GLUCOSE 94 MG/DL (70-104); POTASSIUM 4.3 MMOL/L (3.5-5.1); SODIUM 143 MMOL/L (135-145); TOTAL CARBON DIOXIDE 25.8 MMOL/L (24-32); eGFR 49 ML/MIN
[2018-10-27 16:03] LABS: PARTIAL THROMBOPLASTIN TIME 30 SECONDS (22-32)
[2018-10-28] VITALS (14 sets, daily range): BP systolic 130–152; BP diastolic 62–94
[~2018-10-28] VITALS: Ht 190.5 cm; Wt 102.9 kg
[2018-10-28] MEDS ORDERED: acetylcysteine 200 MG/ml 4ml vial PO SCH ×2 (07:04→10:19)
[2018-10-28] MEDS ORDERED: normal saline 1,000 ML IV SCH (07:05)
[2018-10-28] MEDS ORDERED: diphenhydrAMINE 25mg capsule PO PRN (07:05)
[2018-10-28] MEDS ORDERED: RIVA20TA PO (07:16)
[2018-10-28] MEDS ORDERED: LIDOcaine/PRILOcaine 5gm cream TP ONE (07:40)
[2018-10-28] MEDS ORDERED: LIDOcaine 1% (10mg/ml)w/preservative injection 20ml MDV ONE (07:43)
[2018-10-28] MEDS ORDERED: fentaNYL/PF 50MCG/1 ML 2ML syringe ONE (07:43)
[2018-10-28] MEDS ORDERED: heparin 1,000unit/ml 10ml vial 10 ML ONE (07:43)
[2018-10-28] MEDS ORDERED: verapamil 2.5 mg/ml inj IV ONE (07:43)
[2018-10-28] MEDS ORDERED: midazolam 2 mg/2 ml injection ONE (07:43)
[2018-10-28] MEDS ORDERED: nitroGLYCERIN-Tridil 50MG/D5W 250 ML IV ONE (07:44)
[2018-10-28] MEDS ORDERED: heparin 1,000 UNITS/NS 500ml 500 ML ONE ×3 (07:44→08:49)
[2018-10-28] MEDS ORDERED: iohexol 350 MG/ML 50ML vial IV ONE (07:44)
[2018-10-28] MEDS ORDERED: iohexol 350MG/ML 100ml bottle IV ONE ×3 (07:44→09:08)
[2018-10-28] MEDS ORDERED: LORazepam 0.5 MG tablet PO PRN (07:45)
[2018-10-28] MEDS ORDERED: heparin 25,000 UNIT/250ml bag 250 ML IV ONE (08:49)
[2018-10-28] MEDS ORDERED: clopidogrel 300mg tablet ONE (09:18)
[2018-10-28] MEDS ORDERED: SODIUM CHLORIDE IV ONE (10:20)
[2018-10-28] MEDS ORDERED: SODIUM BICARBONATE IV ONE (10:20)
[2018-10-28] MEDS ORDERED: aspirin 81mg tab.chew PO SCH (10:22)
[2018-10-28] MEDS ORDERED: cyclobenzaprine 10mg tablet PO PRN (10:25)
[2018-10-28] MEDS ORDERED: CLOPIDOGREL BISULFATE 300MG TAB PO ONE (10:25)
[2018-10-28] MEDS ORDERED: acetaminophen 325mg tablet PO PRN (10:25)
[2018-10-28] MEDS ORDERED: proCHLORperazine 10 MG/2 ml inj IV PRN (10:25)
[2018-10-28] MEDS ORDERED: OXAZEpam 15mg capsule PO PRN (10:25)
[2018-10-28] MEDS ORDERED: HYDROcodone/acetaminophen 10/325mg tab PO PRN ×2 (10:25)
[2018-10-28] MEDS ORDERED: magnesium hydroxide 30ml (MOM) UD suspension PO PRN (10:25)
[2018-10-28] MEDS ORDERED: heparin 25,000 UNIT/250ml bag 250 ML IV SCH (10:27)
[2018-10-28] MEDS ORDERED: heparin 10,000 units/1 ML INJ IV ONE (10:30)
[2018-10-28] MEDS ORDERED: heparin 10,000 units/1 ML INJ IV PRN (10:30)
[2018-10-28 11:21] LABS: ISTAT HGB ART 13.3 g/dl (14.0-18.0); ISTAT Hct ART 39 %PCV (42-52); ISTAT O2 SATURATION ARTERIAL 98 % (95-98); ISTAT SOURCE ART
[2018-10-28 11:21] LABS: ISTAT Hct MIX 39 %PCV (42-52); ISTAT O2 SATURATION MIX VENOUS 67 % (60-80); ISTAT SOURCE MIX
[2018-10-28] MEDS ORDERED: sodium bicarbonate inj. 75 ML in dextrose 5% water 500ml 500 ML IV SCH (11:50)
[2018-10-28] MEDS ORDERED: docusate sod 100mg capsule PO SCH (20:00)
[2018-10-28] MEDS ORDERED: carVEDilol 12.5mg tablet PO SCH (20:00)
[2018-10-29] MEDS ORDERED: atorvastatin 20mg tablet PO SCH (08:00)
[2018-10-29] MEDS ORDERED: loratadine 10mg tablet PO SCH (08:00)
[2018-10-29] MEDS ORDERED: amiodarone 200mg tablet PO SCH (08:00)
[2018-10-29] MEDS ORDERED: clopidogrel 75mg tablet PO SCH (08:00)
[2018-10-29] MEDS ORDERED: rivaroxaban 20mg tablet PO SCH (08:00)
== END 2018-10-28 18:17 | disposition home or self-care (01) ==
LOC: SSTAY O 06:50
PROVIDERS: ATTEND Internal Medicine Cardiovascular Disease
DX: I25.10 Atherosclerotic heart disease of native coronary artery without angina pectoris (principal); E78.5 Hyperlipidemia, unspecified; G47.30 Sleep apnea, unspecified; I48.0 Paroxysmal atrial fibrillation; I10 Essential (primary) hypertension; I27.21 Secondary pulmonary arterial hypertension; Z86.73 Personal history of transient ischemic attack (TIA), and cerebral infarction without residual deficits; Z79.82 Long term (current) use of aspirin; Z79.899 Other long term (current) drug therapy
CPT/HCPCS: 36415; 80048; 82803; 85014; 85025; 85347; 85610; 85730; 93005; 93460; 99152; 99153; C1725; C1769; C1874; C1894; C9600; J1644; J2001; J2250; J3010; J7030; J7060; Q0163; Q9967; A4620; A5120; A6258; J3490

== ENCOUNTER 2018-11-04 07:10 | Day surgery (SDC) | payer MEDICARE, OTHER ==
[~2018-11-04] VITALS: Ht 190.5 cm; Wt 102.1 kg
[2018-11-04] VITALS (13 sets, daily range): BP systolic 132–181; BP diastolic 64–90
[~2018-11-04 07:10] MED LIST changes: -APIX5TAB3 PO; +RIVA20TA PO
[2018-11-04] MEDS ORDERED: diphenhydrAMINE 25mg capsule PO PRN (07:40)
[2018-11-04] MEDS ORDERED: sodium bicarbonate (8.4%) inj. 75 ML in dextrose 5% water 500ml 500 ML IV ONE (07:40)
[2018-11-04] MEDS ORDERED: LORazepam 0.5 MG tablet PO PRN (07:40)
[2018-11-04] MEDS ORDERED: sodium bicarbonate inj. 75 ML in dextrose 5% water 500ml 500 ML IV ONE (07:46)
[2018-11-04] MEDS ORDERED: acetylcysteine 200 MG/ml 4ml vial PO SCH (08:00)
[2018-11-04] MEDS ORDERED: CLOP75TA15 PO (08:10)
[2018-11-04 08:29] LABS: BASOPHILS # (AUTO) 0.1 X10'3 (0-0.2); EOSINOPHILS # (AUTO) 0.1 X10'3 (0-0.9); EOSINOPHILS % (AUTO) 2.5 % (0-6); HEMATOCRIT 45.1 % (42.0-52.0); HEMOGLOBIN 15.1 g/dl (14.0-17.9); LYMPHOCYTES % (AUTO) 19.4 % (21-51); MEAN CORPUSCULAR HEMOGLOBIN 31.1 PG (27.0-31.0); MEAN CORPUSCULAR HGB CONC 33.6 g/dL (33.0-36.5); MEAN CORPUSCULAR VOLUME 92.5 FL (78-98); MEAN PLATELET VOLUME 7.2 FL (7.4-10.4); MONOCYTES # (AUTO) 0.5 X10'3 (0-0.9); MONOCYTES % (AUTO) 9.5 % (2-12); NEUTROPHILS # (AUTO) 3.3 X10'3 (1.8-7.7); NEUTROPHILS % (AUTO) 67.6 % (42-75); PLATELET COUNT 178 X10'3 (140-440); RED BLOOD COUNT 4.87 X10'6 (4.70-6.10); RED CELL DISTRIBUTION WIDTH 15.2 % (11.5-14.5); WHITE BLOOD COUNT 4.9 X10'3 (4.5-11.0)
[2018-11-04] MEDS ORDERED: heparin 25,000 UNIT/250ml bag 250 ML IV ONE (08:35)
[2018-11-04] MEDS ORDERED: nitroGLYCERIN-Tridil 50MG/D5W 250 ML IV ONE (08:35)
[2018-11-04] MEDS ORDERED: fentaNYL/PF 50MCG/1 ML 2ML syringe ONE (08:36)
[2018-11-04] MEDS ORDERED: iohexol 350 MG/1 ML 200ml bottle ONE (08:36)
[2018-11-04] MEDS ORDERED: LIDOcaine 1% (10mg/ml)w/preservative injection 20ml MDV ONE (08:36)
[2018-11-04] MEDS ORDERED: heparin 1,000unit/ml 10ml vial 10 ML ONE (08:36)
[2018-11-04] MEDS ORDERED: midazolam 2 mg/2 ml injection ONE (08:36)
[2018-11-04 08:37] LABS: ALBUMIN 3.8 G/DL (3.4-5.0); ANION GAP 8 (8-16); BLOOD UREA NITROGEN 17 MG/DL (7-18); BUN/CREATININE RATIO 15.5 (5.4-32.0); CALCIUM 8.8 MG/DL (8.5-10.1); CHLORIDE 108 MMOL/L (99-107); GLUCOSE 107 MG/DL (70-104); POTASSIUM 4.3 MMOL/L (3.5-5.1); SODIUM 142 MMOL/L (135-145); TOTAL CARBON DIOXIDE 26.4 MMOL/L (24-32); eGFR 66 ML/MIN
[2018-11-04 08:50] LABS: PARTIAL THROMBOPLASTIN TIME 27 SECONDS (22-32)
[2018-11-04] MEDS ORDERED: iohexol 350MG/ML 100ml bottle IV ONE (10:03)
[2018-11-04] MEDS ORDERED: clopidogrel 300mg tablet ONE (10:20)
[2018-11-04] MEDS ORDERED: proCHLORperazine 10 MG/2 ml inj IV PRN (11:15)
[2018-11-04] MEDS ORDERED: acetaminophen 325mg tablet PO PRN (11:15)
[2018-11-04] MEDS ORDERED: cyclobenzaprine 10mg tablet PO PRN (11:15)
[2018-11-04] MEDS ORDERED: HYDROcodone/acetaminophen 10/325mg tab PO PRN ×2 (11:15)
[2018-11-04] MEDS ORDERED: magnesium hydroxide 30ml (MOM) UD suspension PO PRN (11:15)
[2018-11-04] MEDS ORDERED: OXAZEpam 15mg capsule PO PRN (11:15)
[2018-11-04] MEDS ORDERED: aspirin 325mg tablet PO ONE (11:20)
[2018-11-04] MEDS ORDERED: docusate sod 100mg capsule PO SCH (20:00)
[2018-11-05] MEDS ORDERED: aspirin 81mg tab.chew PO SCH (08:00)
[2018-11-05] MEDS ORDERED: clopidogrel 75mg tablet PO SCH (08:00)
== END 2018-11-04 19:25 | disposition home or self-care (01) ==
LOC: SSTAY O 07:10
PROVIDERS: ATTEND Internal Medicine Cardiovascular Disease
DX: I25.10 Atherosclerotic heart disease of native coronary artery without angina pectoris (principal); I48.0 Paroxysmal atrial fibrillation; E78.5 Hyperlipidemia, unspecified; I10 Essential (primary) hypertension; Z86.73 Personal history of transient ischemic attack (TIA), and cerebral infarction without residual deficits; Z79.899 Other long term (current) drug therapy
CPT/HCPCS: 36415; 80048; 85025; 85347; 85610; 85730; 92920; 93005; 99152; 99153; C1725; C1769; C1874; C9600; J1644; J2001; J2250; J3010; Q0163; Q9967; A4620; A6258; C1760; C9601; J3490

== ENCOUNTER 2018-12-30 05:48 | Day surgery (SDC) | payer MEDICARE, OTHER ==
[2018-12-29 12:11] LABS: PARTIAL THROMBOPLASTIN TIME 33 SECONDS (22-32)
[2018-12-29 12:13] LABS: BASOPHILS # (AUTO) 0.1 X10'3 (0-0.2); BASOPHILS % (AUTO) 1.3 % (0-1); EOSINOPHILS # (AUTO) 0.1 X10'3 (0-0.9); EOSINOPHILS % (AUTO) 2.4 % (0-6); HEMATOCRIT 44.9 % (42.0-52.0); HEMOGLOBIN 15.3 g/dl (14.0-17.9); LYMPHOCYTES # (AUTO) 1.1 X10'3 (1.1-4.8); LYMPHOCYTES % (AUTO) 19.9 % (21-51); MEAN CORPUSCULAR HEMOGLOBIN 31.9 PG (27.0-31.0); MEAN CORPUSCULAR VOLUME 93.8 FL (78-98); MEAN PLATELET VOLUME 7.8 FL (7.4-10.4); MONOCYTES # (AUTO) 0.4 X10'3 (0-0.9); MONOCYTES % (AUTO) 6.7 % (2-12); NEUTROPHILS # (AUTO) 3.9 X10'3 (1.8-7.7); NEUTROPHILS % (AUTO) 69.7 % (42-75); PLATELET COUNT 193 X10'3 (140-440); RED BLOOD COUNT 4.79 X10'6 (4.70-6.10); RED CELL DISTRIBUTION WIDTH 13.3 % (11.5-14.5); WHITE BLOOD COUNT 5.6 X10'3 (4.5-11.0)
[2018-12-29 12:15] LABS: ALBUMIN 4.3 G/DL (3.4-5.0); ANION GAP 10 (8-16); BLOOD UREA NITROGEN 21 MG/DL (7-18); BUN/CREATININE RATIO 18.9 (5.4-32.0); CALCIUM 9.3 MG/DL (8.5-10.1); CHLORIDE 107 MMOL/L (99-107); CREATININE 1.11 MG/DL (0.60-1.10); GLUCOSE 108 MG/DL (70-104); POTASSIUM 3.8 MMOL/L (3.5-5.1); SODIUM 144 MMOL/L (135-145); TOTAL CARBON DIOXIDE 27.5 MMOL/L (24-32); eGFR 65 ML/MIN
[2018-12-30] VITALS (13 sets, daily range): BP systolic 114–162; BP diastolic 43–77
[~2018-12-30] VITALS: Ht 190.5 cm; Wt 104.9 kg
[~2018-12-30 05:48] MED LIST changes: +CLOP75TA15 PO
[2018-12-30] MEDS ORDERED: normal saline 1000ml 1,000 ML IV SCH (06:05)
[2018-12-30] MEDS ORDERED: cefazolin/dext.iso 2gm/50ml 50 ML IV ONE (06:05)
[2018-12-30] MEDS ORDERED: midazolam 2 mg/2 ml injection ONE ×2 (07:28→08:19)
[2018-12-30] MEDS ORDERED: ceFAZolin 1GM/D5W- ADD-VANTAGE 50 ML IV ONE (07:28)
[2018-12-30] MEDS ORDERED: ceFAZolin 1000mg inj ONE (07:28)
[2018-12-30] MEDS ORDERED: fentaNYL/PF 50MCG/1 ML 2ML syringe ONE ×2 (07:28→08:19)
[2018-12-30] MEDS ORDERED: LIDOcaine 1% W/epiNEPHrine 1:100,000 20ml vial ONE ×2 (07:28)
--- NOTE | 2018-12-30 07:58 | NUR ---
[facility] FIRST VS IN CHART. MED REC DONE ON PAPER.
[2018-12-30] MEDS ORDERED: diphenhydrAMINE 50 mg/ml inj ONE (08:19)
[2018-12-30] MEDS ORDERED: iohexol 350 MG/ML 50ML vial IV ONE (08:30)
[2018-12-30] MEDS ORDERED: hydrALAZINE 20mg/ml inj. IV ONE (09:02)
[2018-12-30] MEDS ORDERED: POTA10TA19 PO (09:27)
[2018-12-30] MEDS ORDERED: FURO-150 PO (09:27)
[2018-12-30] MEDS ORDERED: pneumococcal 23-VAL P-sac vacc 25 mcg/0.5ml vial IMVAC ONE (09:35)
[2018-12-30] MEDS ORDERED: HYDROcodone/acetaminophen 10/325mg tab PO PRN (10:25)
[2018-12-30] MEDS ORDERED: HYDROcodone/acetaminophen 5mg/325mg tablet PO PRN (10:25)
[2018-12-30] MEDS ORDERED: normal saline 1,000 ML IV SCH (10:30)
[2018-12-30] MEDS ORDERED: vancomycin/NS 1 GM ADD-VANTAGE 250 ML X 1 DOSE IV ONE (14:00)
[2018-12-30] MEDS ORDERED: acetaminophen 325mg tablet PO PRN (14:55)
--- NOTE | 2018-12-30 16:40 | NUR ---
LEFT DISCRETE MESSAGE ON PT HOME NUMBER INFORMING PATIENT THAT INSTRUCTIONS WILL BE MAILED HOME TO HIM. NO NEED FOR HIM TO RETURN TO PICK THEM UP, BUT TO CALL IF HE HAS ANY QUESTIONS.
== END 2018-12-30 16:20 | disposition home or self-care (01) ==
LOC: SSTAY O 05:48
PROVIDERS: ATTEND Internal Medicine Cardiovascular Disease
DX: I49.5 Sick sinus syndrome (principal); I25.10 Atherosclerotic heart disease of native coronary artery without angina pectoris; E78.5 Hyperlipidemia, unspecified; G47.30 Sleep apnea, unspecified; I10 Essential (primary) hypertension; I48.0 Paroxysmal atrial fibrillation; I27.21 Secondary pulmonary arterial hypertension; Z95.5 Presence of coronary angioplasty implant and graft; Z86.73 Personal history of transient ischemic attack (TIA), and cerebral infarction without residual deficits; Z79.82 Long term (current) use of aspirin; Z79.899 Other long term (current) drug therapy
CPT/HCPCS: 33208; 36415; 71046; 80048; 85025; 85610; 85730; 93005; 99152; 99153; C1785; C1894; C1898; J0360; J0690; J1200; J2250; J3010; J3370; J7030; Q9967; A4565; A4620

== ENCOUNTER 2020-02-16 09:01 | Day surgery (SDC) | payer MEDICARE, OTHER ==
[2020-02-15 10:46] LABS: BASOPHILS # (AUTO) 0.1 X10'3 (0-0.2); EOSINOPHILS # (AUTO) 0.3 X10'3 (0-0.9); EOSINOPHILS % (AUTO) 3.6 % (0-6); HEMATOCRIT 48.3 % (42.0-52.0); HEMOGLOBIN 16.3 g/dl (14.0-17.9); LYMPHOCYTES # (AUTO) 1.2 X10'3 (1.1-4.8); LYMPHOCYTES % (AUTO) 17.2 % (21-51); MEAN CORPUSCULAR HEMOGLOBIN 31.3 PG (27.0-31.0); MEAN CORPUSCULAR HGB CONC 33.8 g/dL (33.0-36.5); MEAN CORPUSCULAR VOLUME 92.5 FL (78-98); MEAN PLATELET VOLUME 7.5 FL (7.4-10.4); MONOCYTES # (AUTO) 0.6 X10'3 (0-0.9); MONOCYTES % (AUTO) 8.3 % (2-12); NEUTROPHILS % (AUTO) 69.9 % (42-75); PLATELET COUNT 187 X10'3 (140-440); RED BLOOD COUNT 5.22 X10'6 (4.70-6.10); RED CELL DISTRIBUTION WIDTH 14.3 % (11.5-14.5); WHITE BLOOD COUNT 7.2 X10'3 (4.5-11.0)
[2020-02-15 10:59] LABS: ALBUMIN 4.2 G/DL (3.4-5.0); ANION GAP 8 (8-16); BLOOD UREA NITROGEN 20 MG/DL (7-18); BUN/CREATININE RATIO 16.3 (5.4-32.0); CALCIUM 8.9 MG/DL (8.5-10.1); CHLORIDE 107 MMOL/L (99-107); CREATININE 1.23 MG/DL (0.60-1.10); GLUCOSE 93 MG/DL (70-104); POTASSIUM 4.4 MMOL/L (3.5-5.1); SODIUM 142 MMOL/L (135-145); TOTAL CARBON DIOXIDE 27.3 MMOL/L (24-32); eGFR 58 ML/MIN
[2020-02-15 11:00] LABS: PARTIAL THROMBOPLASTIN TIME 25 SECONDS (22-32)
[~2020-02-16] VITALS: Ht 190.5 cm; Wt 108.5 kg
[2020-02-16] VITALS (10 sets, daily range): BP systolic 125–180; BP diastolic 71–112
[~2020-02-16 09:01] MED LIST changes: +FURO-150 PO; +POTA10TA19 PO
[2020-02-16] MEDS ORDERED: diphenhydrAMINE 25mg capsule PO PRN (09:25)
[2020-02-16] MEDS ORDERED: LORazepam 0.5 MG tablet PO PRN (09:25)
[2020-02-16] MEDS ORDERED: normal saline 1,000 ML IV SCH (09:25)
[2020-02-16] MEDS ORDERED: sodium bicarbonate (8.4%) inj. 150 ML in dextrose 5%-water 1,000 ML IV ONE (09:45)
[2020-02-16] MEDS ORDERED: nitroGLYCERIN-Tridil 50MG/D5W 250 ML IV ONE (11:55)
[2020-02-16] MEDS ORDERED: heparin 1,000unit/ml 10ml vial 10 ML ONE (11:56)
[2020-02-16] MEDS ORDERED: LIDOcaine 1% (10mg/ml)w/preservative injection 20ml MDV ONE (11:56)
[2020-02-16] MEDS ORDERED: iohexol 350 MG/ML 50ML vial IV ONE (11:56)
[2020-02-16] MEDS ORDERED: fentaNYL/PF 50MCG/1 ML 2ML syringe ONE (11:56)
[2020-02-16] MEDS ORDERED: iohexol 350MG/ML 100ml bottle IV ONE (11:56)
[2020-02-16] MEDS ORDERED: midazolam 2 mg/2 ml injection ONE (11:56)
[2020-02-16] MEDS ORDERED: HYDROcodone/acetaminophen 10/325mg tab PO PRN (13:20)
[2020-02-16] MEDS ORDERED: HYDROcodone/acetaminophen 5mg/325mg tablet PO PRN (13:20)
[2020-02-16] MEDS ORDERED: acetaminophen 325mg tablet PO PRN (13:20)
== END 2020-02-16 18:02 | disposition home or self-care (01) ==
LOC: SSTAY O 09:01
PROVIDERS: ATTEND Internal Medicine Cardiovascular Disease
DX: R94.39 Abnormal result of other cardiovascular function study (principal); I25.10 Atherosclerotic heart disease of native coronary artery without angina pectoris; I25.82 Chronic total occlusion of coronary artery; E78.5 Hyperlipidemia, unspecified; I10 Essential (primary) hypertension; I48.0 Paroxysmal atrial fibrillation; Z95.0 Presence of cardiac pacemaker; Z86.73 Personal history of transient ischemic attack (TIA), and cerebral infarction without residual deficits; Z95.5 Presence of coronary angioplasty implant and graft
CPT/HCPCS: 36415; 80048; 85025; 85610; 85730; 93005; 93458; 99152; C1760; C1769; C1894; J1644; J2001; J2250; J3010; J7030; Q0163; Q9967; A4620; A6258; J3490

== ENCOUNTER 2020-05-03 13:58 | Outpatient (CLI) | payer MEDICARE, OTHER ==
[~2020-05-03 13:58] MED LIST changes: -FURO-150 PO; -POTA10TA19 PO
[2020-05-03 14:32] LABS: TOTAL HEMOGLOBIN 16.2 G/dl (14.0-18.0)
== END 2020-05-03 23:59 | disposition home or self-care (01) ==
LOC: RT 13:58
PROVIDERS: ATTEND Internal Medicine Cardiovascular Disease
DX: I27.20 Pulmonary hypertension, unspecified (principal); R06.02 Shortness of breath; Z79.899 Other long term (current) drug therapy
CPT/HCPCS: 71046; 85018; 94010; 94727; 94729

== ENCOUNTER 2023-07-23 09:14 | Day surgery (SDC) | payer BC, MEDICARE, OTHER ==
[2023-07-22 09:17] LABS: BASOPHILS # (AUTO) 0.1 X10'3 (0-0.2); BASOPHILS % (AUTO) 1.2 % (0-1); EOSINOPHILS # (AUTO) 0.3 X10'3 (0-0.9); EOSINOPHILS % (AUTO) 5.3 % (0-6); HEMATOCRIT 49.2 % (42.0-52.0); HEMOGLOBIN 16.2 g/dl (14.0-17.9); LYMPHOCYTES # (AUTO) 1.1 X10'3 (1.1-4.8); LYMPHOCYTES % (AUTO) 17.8 % (21-51); MEAN CORPUSCULAR HGB CONC 32.9 g/dL (33.0-36.5); MEAN PLATELET VOLUME 7.6 FL (7.4-10.4); MONOCYTES # (AUTO) 0.6 X10'3 (0-0.9); MONOCYTES % (AUTO) 9.3 % (2-12); NEUTROPHILS # (AUTO) 4.2 X10'3 (1.8-7.7); NEUTROPHILS % (AUTO) 66.4 % (42-75); PLATELET COUNT 164 X10'3 (140-440); RED BLOOD COUNT 5.23 X10'6 (4.70-6.10); RED CELL DISTRIBUTION WIDTH 13.9 % (11.5-14.5); WHITE BLOOD COUNT 6.3 X10'3 (4.5-11.0)
[2023-07-22 09:31] LABS: ALBUMIN 3.9 G/DL (3.4-5.0); ANION GAP 9 (8-16); BLOOD UREA NITROGEN 21 MG/DL (7-18); BUN/CREATININE RATIO 15.1 (10.0-20.0); CALCIUM 9.2 MG/DL (8.5-10.1); CHLORIDE 108 MMOL/L (99-107); CREATININE 1.39 MG/DL (0.60-1.10); GLUCOSE 118 MG/DL (70-104); POTASSIUM 4.4 MMOL/L (3.5-5.1); SODIUM 142 MMOL/L (135-145); TOTAL CARBON DIOXIDE 24.8 MMOL/L (24-32); eGFR 50 ML/MIN
[2023-07-22 09:35] LABS: APTT 25 SECONDS (22-32); INR 1.1 INR; PROTHROMBIN TIME 11.4 SECONDS (9.0-12.0)
[2023-07-23] VITALS (12 sets, daily range): BP systolic 118–151; BP diastolic 77–106; PULSE 80–84; RESP 10–14; TEMP 98.1; O2SAT 93–99
[~2023-07-23] VITALS: Ht 185.4 cm; Wt 110.2 kg
[2023-07-23] MEDS ORDERED: EZET10TA48 PO (10:04)
[2023-07-23] MEDS ORDERED: ATOR-2 PO (10:04)
[2023-07-23] MEDS: LIDOcaine 1% (10mg/ml) 2ml vial ONE (10:16)
[2023-07-23] MEDS: diphenhydrAMINE 25mg capsule PO PRN (10:17)
[2023-07-23] MEDS: LORazepam 0.5 MG tablet PO PRN (10:17)
[2023-07-23] MEDS: normal saline 1,000 ML IV SCH (10:18)
[2023-07-23] MEDS: sodium bicarbonate 1meq/ml syr 150 ML in dextrose 5%-water 1,000 ML IV SCH (10:37)
[2023-07-23] MEDS ORDERED: heparin 1,000unit/ml 10ml vial 10 ML ONE (10:40)
[2023-07-23] MEDS ORDERED: midazolam 1 mg/ML 2ml injection ONE (10:40)
[2023-07-23] MEDS ORDERED: iohexol 350 MG/ML 50ML vial IV ONE (10:40)
[2023-07-23] MEDS ORDERED: verapamil 2.5 mg/ml inj IV ONE (10:40)
[2023-07-23] MEDS ORDERED: LIDOcaine 1% (10mg/ml) 2ml vial ONE (10:40)
[2023-07-23] MEDS ORDERED: fentaNYL/PF 50MCG/1 ML 2ML syringe ONE (10:40)
[2023-07-23] MEDS ORDERED: nitroGLYCERIN 500mcg/5mL D5W 5 ML IV ONE (10:41)
[2023-07-23] MEDS ORDERED: iohexol 350MG/ML 100ml bottle IV ONE (10:41)
[2023-07-23] MEDS ORDERED: LIDOcaine 1% 30ml preserv. free vial ONE (11:14)
[2023-07-23] MEDS ORDERED: HYDROmorphone 1 mg/ml syringe ONE (11:33)
[2023-07-23] MEDS: ondansetron/PF 4mg/2ml inj ONE (12:17)
[2023-07-23] MEDS ORDERED: HYDROcodone/acetaminophen 10/325mg tab PO PRN (12:25)
== END 2023-07-23 18:45 | disposition home or self-care (01) ==
LOC: SSTAY O 09:14
PROVIDERS: ATTEND Internal Medicine Cardiovascular Disease
DX: R94.39 Abnormal result of other cardiovascular function study (principal); I25.10 Atherosclerotic heart disease of native coronary artery without angina pectoris; I45.10 Unspecified right bundle-branch block; I12.9 Hypertensive chronic kidney disease with stage 1 through stage 4 chronic kidney disease, or unspecified chronic kidney disease; N18.9 Chronic kidney disease, unspecified; I48.91 Unspecified atrial fibrillation; E78.5 Hyperlipidemia, unspecified; G47.33 Obstructive sleep apnea (adult) (pediatric); I34.0 Nonrheumatic mitral (valve) insufficiency; Z79.01 Long term (current) use of anticoagulants; Z79.82 Long term (current) use of aspirin; Z79.899 Other long term (current) drug therapy; Z95.5 Presence of coronary angioplasty implant and graft; Z95.0 Presence of cardiac pacemaker; Z80.9 Family history of malignant neoplasm, unspecified
CPT/HCPCS: 36415; 76937; 80048; 85025; 85610; 85730; 93005; 93458; 99152; J1170; J1644; J2250; J2405; J3010; J3490; J7030; J7070; Q0163; Q9967; A4615; A6258; C1725; C1894